=== PATIENT | female | born 1960 | race Asian ===

== ENCOUNTER 2017-08-17 23:12 | Inpatient (IN) | payer BC ==
[~2017-08-17] VITALS: Ht 170.2 cm; Wt 76.2 kg
--- NOTE | 2017-08-18 03:40 | NUR ---
RN/TELE NOTES: DIRECT ADMIT PT. FROM [facility] AN 57 YRS. OLD FEMALE [place] MOSTLY SPEAKING RIAZ W/ ADMITTING DX: OF CHEST PAIN. RA SAT. 98%. DENIES ANY C/O CHEST PAIN OR SOB AT THIS TIME. SISTER THUY AT BEDSIDE. HAS LA SL G 20 W/ NO S/S OF INFECTION/INFILTRATION NOTED AT THIS TIME. PER PT. SISTER PT. TAKES [place]AN 50 MGS DAILY AND SOMETHING FOR SLEEP BUT DOES NOT KNOW THE NAME. SISTER WILL BRING IN THE MEDICATION. PT. PRIMARY DR. MAYANK MEDINA SING IN [place]. ON CARDIAC DIET. GAVE MEDS PER ORDER. CALL LIGHT W/ REACH. ALL NEEDS MEET. ON TELE MONITOR W/ SR. BEDS LOCKED IN LOW POSITION.
[2017-08-18 03:41] VITALS: BP 162/92
[2017-08-18 04:00] VITALS: BP 162/92
[2017-08-18] MEDS: METOPROLOL TARTRATE 25 MG TABLET PO SCH ×2 (04:28→20:59)
[2017-08-18] MEDS: ENOXAPARIN SODIUM 40 MG/0.4 ML DISP.SYRIN SQ SCH (04:29)
[2017-08-18] MEDS ORDERED: MAGNESIUM HYDROXIDE 30 ML UDC PO PRN (04:30)
[2017-08-18] MEDS ORDERED: MAG HYDROX/AL HYDROX/SIMETH 30 ML UDC PO PRN (04:30)
[2017-08-18] MEDS ORDERED: MORPHINE SULFATE INJ 2 MG/ML DISP.SYRIN IV PRN (04:30)
[2017-08-18] MEDS ORDERED: Z GUARD REMEDY 2 OZ OINT TP PRN (04:30)
[2017-08-18] MEDS ORDERED: NITROGLYCERIN 0.4 MG/TAB BOTTLE SL PRN (04:30)
[2017-08-18] MEDS ORDERED: ONDANSETRON HCL/PF 4 MG/2 ML VIAL IVP PRN (04:30)
[2017-08-18] MEDS ORDERED: ZOLPIDEM TARTRATE 5 MG TABLET PO PRN (04:30)
[2017-08-18] MEDS ORDERED: HYDROCODONE/APAP 5/325MG 1 EACH TABLET PO PRN (04:30)
[2017-08-18] MEDS ORDERED: ACETAMINOPHEN 325 MG TABLET PO PRN (04:30)
--- NOTE | 2017-08-18 06:44 | NUR ---
RN/TELE NOTES: PT. DENIES ANY PAIN OR DISCOMFORT AT THIS TIME. SISTER REMAIN AT BEDSIDE. NO ACUTE CHANGES NOTED DURING THIS SHIFT. REPORT GIVEN TO AM NURSE FOR RAMIRO.
--- NOTE | 2017-08-18 07:18 | NUR ---
CLEANER AND POLISHER NOTES RECEIVED PT ON BED AWAKE ALERT ORIENTED X4. ON ROOM AIR SATURATING WELL. ON TELE MONITOR SR 80S. IV ACCESS ON LA 20G SL. NO PAIN OR REDNESS. HEAD OF BED ELEVATED. BED ALARM ON. SIDE RAILS UP. WILL CONTINUE TO MONITOR PT CLOSELY.
[2017-08-18 08:00] VITALS: BP 128/72
[2017-08-18] MEDS: ASPIRIN EC 81 MG TABLET.DR PO SCH (08:23)
[2017-08-18] MEDS ORDERED: ZOLP10TA2 PO (09:18)
[2017-08-18] MEDS ORDERED: LOSA50TA21 PO (09:18)
[2017-08-18 12:00] VITALS: BP_SYST 133; BP_SYST 144; BP_DIAS 65; BP_DIAS 77
[2017-08-18] MEDS ORDERED: MECLIZINE HCL 12.5 MG TABLET PO PRN (12:00)
[2017-08-18] MEDS ORDERED: ZOLPIDEM TARTRATE 10 MG TABLET PO PRN (12:00)
[2017-08-18 12:16] LABS: BASOPHILS # (AUTO) 0.1 /CMM (0.0-0.2); BASOPHILS % (AUTO) 1.3 % (0.0-2.0); EOSINOPHILS # (AUTO) 0.1 /CMM (0.0-0.7); EOSINOPHILS % (AUTO) 0.8 % (0.0-6.0); HEMATOCRIT 35 % (33-45); HEMOGLOBIN 12.1 g/dL (11.5-14.8); LYMPHOCYTES % (AUTO) 29.7 % (20.0-44.0); MEAN CORPUSCULAR HEMOGLOBIN 31 PG (26.0-33.0); MEAN CORPUSCULAR HGB CONC 34 g/dl (31.0-36.0); MEAN CORPUSCULAR VOLUME 90 fL (82-100); MONOCYTES # (AUTO) 0.4 /CMM (0.1-1.30); MONOCYTES % (AUTO) 5.9 % (2.0-12.0); NEUTROPHILS # (AUTO) 4.2 /CMM (1.8-8.9); NEUTROPHILS % (AUTO) 62.3 % (43.0-81.0); PLATELET COUNT (AUTO) 237 /CMM (150-450); RDW COEFFICIENT OF VARIATION 13.3 (11.5-15.0); RED BLOOD CELL COUNT(AUTO) 3.94 MIL/uL (4.0-5.2); WHITE BLOOD COUNT (AUTO) 6.8 K/uL (4.3-11.0)
[2017-08-18 12:16] LABS: POTASSIUM 3.3 mmol/L (3.5-5.1)
[2017-08-18 12:17] LABS: ALBUMIN 3.7 g/dL (3.4-5.0); BILIRUBIN,TOTAL 0.4 mg/dL (0.2-1.0); CALCIUM, SERUM 8.9 mg/dL (8.5-10.1); CREATININE 0.7 mg/dL (0.6-1.3); TOTAL PROTEIN, SERUM 7.3 g/dL (6.4-8.2)
[2017-08-18] MEDS: LOSARTAN POTASSIUM 50 MG TABLET PO SCH (12:26)
[2017-08-18] MEDS ORDERED: POTASSIUM CHLORIDE 20 MEQ TAB.PRT.SR PO ONE (13:00)
[2017-08-18 14:25] LABS: THYROID STIMULATING HORMONE 0.62 uIU/mL (0.358-3.74)
[2017-08-18] MEDS: ATORVASTATIN 10 MG TABLET PO SCH (14:44)
[2017-08-18 16:00] VITALS: BP 130/74
--- NOTE | 2017-08-18 18:24 | NUR ---
TELEMARKETING SUPERVISOR NOTES NO ACUTE CHANGES NOTED DURING THE SHIFT. DUE MEDS GIVEN. PROVIDED COMFORT AND SAFETY. WILL ENDORSE TO THE PM NURSE FOR RAMIRO.
--- NOTE | 2017-08-18 19:30 | NUR ---
RN/TELE NOTES: RECEIVED PT.IN BED A/O X 4. W/ SISTER AND NIECE AT BEDSIDE. MOSTLY RIAZ SPEAKING PT. DENIES ANY C/O CHEST PAIN OR SOB AT PRESENT. RA SAT 100 %. PT. IS CONTINENT OF B/B. ABLE TO AMBULATE W/ STAND BY ASSIST. CALL LIGHT W/ REACH. ALL NEEDS MEET WILL CONTINUE TO MONITOR.
[2017-08-18 20:00] VITALS: BP 157/79
[2017-08-18] MEDS ORDERED: SIMVASTATIN 20 MG TABLET PO SCH (22:00)
[2017-08-19] VITALS: BP 114/68
[2017-08-19 04:00] VITALS: BP 113/65
[2017-08-19 06:45] LABS: BASOPHILS # (AUTO) 0.1 /CMM (0.0-0.2); BASOPHILS % (AUTO) 0.9 % (0.0-2.0); EOSINOPHILS # (AUTO) 0.1 /CMM (0.0-0.7); EOSINOPHILS % (AUTO) 1.9 % (0.0-6.0); HEMATOCRIT 35 % (33-45); HEMOGLOBIN 12.2 g/dL (11.5-14.8); LYMPHOCYTES # (AUTO) 3.5 /CMM (0.8-4.8); MEAN CORPUSCULAR HEMOGLOBIN 31 PG (26.0-33.0); MEAN CORPUSCULAR HGB CONC 35 g/dl (31.0-36.0); MEAN CORPUSCULAR VOLUME 90 fL (82-100); MONOCYTES # (AUTO) 0.5 /CMM (0.1-1.30); MONOCYTES % (AUTO) 6.6 % (2.0-12.0); NEUTROPHILS # (AUTO) 3.2 /CMM (1.8-8.9); NEUTROPHILS % (AUTO) 43.6 % (43.0-81.0); PLATELET COUNT (AUTO) 236 /CMM (150-450); RDW COEFFICIENT OF VARIATION 13.5 (11.5-15.0); RED BLOOD CELL COUNT(AUTO) 3.94 MIL/uL (4.0-5.2); WHITE BLOOD COUNT (AUTO) 7.4 K/uL (4.3-11.0)
[2017-08-19 06:55] LABS: CREATININE 0.7 mg/dL (0.6-1.3); PHOSPHORUS 4.2 mg/dL (2.5-4.9); POTASSIUM 3.9 mmol/L (3.5-5.1)
[2017-08-19 06:58] LABS: THYROID STIMULATING HORMONE 0.917 uIU/mL (0.358-3.74)
--- NOTE | 2017-08-19 07:09 | NUR ---
RN/TELE NOTES: NO ACUTE DISTRESS NOTED DURING THIS SHIFT. REPORT GIVEN TO NEXT SHIFT NURSE FOR RAMIRO.
--- NOTE | 2017-08-19 07:41 | NUR ---
RN NOTE:(INITIAL) PATIENT RECEIVED ALERT AWAKE ORIENTED X4. ON ROOM AIR, NO BREATHING DIFFICULTY NOTED. DENIES CHEST PAIN & DISCOMFORT. ON TELE MONITOR SINUS RHYTHM. SAFETY MEASURES OBSERVED. CALL LIGHT WITHIN REACH. WILL CONTINUE TO MONITOR.
[2017-08-19 08:00] VITALS: BP 138/81
[2017-08-19] MEDS: ATORVASTATIN 10 MG TABLET PO SCH (08:11)
[2017-08-19] MEDS: LOSARTAN POTASSIUM 50 MG TABLET PO SCH (08:11)
[2017-08-19] MEDS: METOPROLOL TARTRATE 25 MG TABLET PO SCH (08:12)
[2017-08-19] MEDS: ASPIRIN EC 81 MG TABLET.DR PO SCH (08:12)
[2017-08-19] MEDS: ENOXAPARIN SODIUM 40 MG/0.4 ML DISP.SYRIN SQ SCH (08:13)
[2017-08-19] MEDS ORDERED: TRAM50TA PO ×2 (13:25→14:37)
[2017-08-19 16:00] VITALS: BP 138/79
--- NOTE | 2017-08-19 17:01 | NUR ---
RN NOTE:(DISCHARGE) PATIENT DISCHARGE TO HOME ALERT AWAKE ORIENTED X4. ON ROOM AIR. NO BREATHING DIFFICULTY NOTED. DENIES CHEST PAIN/DISCOMFORT. DISCHARGE INSTRUCTIONS GIVEN TO THE PATIENT VERBALLY & PRINTED. VERBALIZE TO UNDERSTAND. PRESCRIPTION SEND ELECTRONICALLY TO PREFERRED PHARMACY. DISCHARGE PACKAGE GIVEN TO THE PATIENT. IV CATHETER REMOVED. NO BLEEDING NOTED. LEFT WITH SISTER THUY FROM FLOOR WITH ALL BELONGINGS. PATIENT STATED WILL TAKE FLU VACCINE FROM PRIMARY DOCTOR'S OFFICE. EDUCATION PROVIDED.
== END 2017-08-19 17:10 | disposition home or self-care (01) | DRG 206 ==
LOC: TELE1 08-18 03:16 → MEDSG1 08-19 10:27
DX: M94.0 Chondrocostal junction syndrome [Tietze] (principal); E78.5 Hyperlipidemia, unspecified; E87.6 Hypokalemia; I10 Essential (primary) hypertension; H81.10 Benign paroxysmal vertigo, unspecified ear; Z90.49 Acquired absence of other specified parts of digestive tract
CPT/HCPCS: 36415; 80048-TC; 80053-TC; 80061-TC; 82728-TC; 83540-TC; 83735-TC; 83880; 84100-TC; 84439-TC; 84443-TC; 84484-TC; 85025-TC; 85610-TC; 85730-TC; 87081-TC; 93307-TC; A4349; J1650; Z7610